=== PATIENT | male | born 1995 | race Caucasian/White ===

== ENCOUNTER 2024-09-08 08:53 | Emergency (ER) | payer SELFPAY ==
[~2024-09-08] VITALS: Ht 182.9 cm; Wt 68.0 kg
[2024-09-08 09:28] VITALS: BP 120/83; TEMP 98.3; O2SAT 98
== END 2024-09-08 09:29 | disposition home or self-care (01) ==
LOC: ER 08:58
DX: S09.8XXA Other specified injuries of head, initial encounter (principal); V00.131A Fall from skateboard, initial encounter; Y93.51 Activity, roller skating (inline) and skateboarding; Y92.89 Other specified places as the place of occurrence of the external cause; Y99.8 Other external cause status

== ENCOUNTER 2024-10-22 02:35 | Emergency (ER) | payer SELFPAY ==
[~2024-10-22] VITALS: Ht 182.9 cm; Wt 72.6 kg
[2024-10-22 03:07] VITALS: TEMP 97.8
[2024-10-22 03:20] VITALS: BP 130/73; O2SAT 98
== END 2024-10-22 03:33 | disposition home or self-care (01) ==
LOC: ER 02:39
DX: R00.2 Palpitations (principal)